=== PATIENT | female | born 1980 | race Asian ===

== ENCOUNTER 2018-10-17 10:35 | Emergency (ER) | payer BC ==
[~2018-10-17] VITALS: Ht 175.3 cm; Wt 73.0 kg
[2018-10-17 10:43] VITALS: BP 118/90; Ht 175.3 cm; Wt 73.0 kg
== END 2018-10-17 12:02 | disposition left against medical advice (07) ==
LOC: ED 10:35
DX: J02.9 Acute pharyngitis, unspecified (principal); R50.9 Fever, unspecified; Z53.21 Procedure and treatment not carried out due to patient leaving prior to being seen by health care provider